=== PATIENT | female | born 1945 | race Caucasian/White ===

== ENCOUNTER 2017-04-18 19:03 | Emergency (ER) | payer OTHER ==
[~2017-04-18] VITALS: Ht 152.4 cm; Wt 66.2 kg
[2017-04-18 19:05] VITALS: BP_SYST 158
[2017-04-18] MEDS ORDERED: MORPHINE 4 MG/ML INJ. SYRINGE IM ONE (19:45)
[2017-04-18] MEDS ORDERED: ONDANSETRON 4 MG ODT TAB PO ONE (19:45)
[2017-04-18 20:50] VITALS: BP_SYST 142
== END 2017-04-18 20:50 | disposition home or self-care (01) ==
LOC: SED 19:03
DX: S52.301A Unspecified fracture of shaft of right radius, initial encounter for closed fracture (principal); S52.611A Displaced fracture of right ulna styloid process, initial encounter for closed fracture; R03.0 Elevated blood-pressure reading, without diagnosis of hypertension; V43.52XA Car driver injured in collision with other type car in traffic accident, initial encounter; Y93.89 Activity, other specified; Y92.488 Other paved roadways as the place of occurrence of the external cause; Y99.8 Other external cause status
CPT/HCPCS: 29105; 73090; 96372; 99284; J2270; Q0162